=== PATIENT | female | born 1945 | race Caucasian/White ===

== ENCOUNTER 2023-01-27 12:17 | Emergency (ER) | payer OTHER, SELFPAY ==
[2023-01-27 12:29] VITALS: BP 160/97; PULSE 77; RESP 18; TEMP 37.1; O2SAT 97; BMI 29.2
[2023-01-27 13:40] VITALS: BP 145/99; PULSE 91; RESP 18; O2SAT 96
--- NOTE | 2023-01-27 14:32 | ED.WOUNDLAC ---
HPI - Wound/Laceration <Lyn Oscar PA-C - Last Filed: 01/27/23 14:39> General Chief Complaint: Wound/Laceration Stated Complaint: Open sore perenium Time Seen by Provider: 01/27/23 12:53 Source: patient Mode of arrival: Ambulatory History of Present Illness HPI narrative: Patient is a 77 year-old female who presents with a perineal wound. She reports about 5 days ago she noticed a small pimple on the right buttock, posterior to the vaginal introitus. She has amoxicillin that she has taken in the past for dental procedures and she started taking this but does not know the dose. The pimple grew in size and over the last 2 days has been draining a light bloody drainage. She denies fever or chills, otherwise feels well, but the area is very tender. She has been rinsing with a hand-held shower head. She denies any urinary symptoms or vaginal discharge or bleeding. She does not have a primary care provider. Related Data Previous Rx's Medication Instructions Recorded amoxicillin 875 mg-potassium 1 tab PO BID #14 tabs 01/27/23 clavulanate 125 mg tablet Allergies Allergy/AdvReac Type Severity Reaction Status Date / Time No Known Drug Allergies Allergy Verified 01/27/23 12:28 Review of Systems <Lyn Oscar PA-C - Last Filed: 01/27/23 14:39> Review of Systems ROS Unobtainable: All systems reviewed & are unremarkable except as noted in HPI and below Patient History <Lyn Oscar PA-C - Last Filed: 01/27/23 14:39> Social History Smoking Status: Never smoker Smoking Status: Never smoker alcohol intake frequency: 0-2 drinks per day Substance Use Type: does not use Exam <Lyn Oscar PA-C - Last Filed: 01/27/23 14:39> Narrative Exam Narrative: GENERAL: 77 year old patient appears stated age. Well-developed patient, in no distress. NEURO: AOx3. HEAD: Atraumatic. Normocephalic. EYES: Pupils equal round and reactive. Extraocular motions intact. No scleral icterus. No injection or drainage. ENT: Nose without bleeding or purulent drainage. Airway patent. RESPIRATORY: No distress. EXTREMITIES: No edema or joint tenderness. : Normal external adult female genitalia. There is a cellulitic area approximately 3 cm in diameter on the right buttock, posterior to the vaginal introitus. There is a central 5 mm opening that is plugged by white discharge. Using a Q-tip, this discharge was removed. The wound was gently probed with the sterile Q-tip and no tracts were found, deepest aspect was 5 mm. No fluctuance appreciated. SKIN: No rash or erythema of visible areas Initial Vital Signs Initial Vital Signs: Vital Signs Temperature 98.7 F 01/27/23 12:29 Pulse Rate 77 01/27/23 12:29 Respiratory Rate 18 01/27/23 12:29 Blood Pressure 160/97 H 01/27/23 12:29 Pulse Oximetry 97 01/27/23 12:29 Oxygen Delivery Method Room Air 01/27/23 12:29 <Diane Patel MD - Last Filed: 01/27/23 14:58> Initial Vital Signs Initial Vital Signs: Vital Signs Temperature 98.7 F 01/27/23 12:29 Pulse Rate 77 01/27/23 12:29 Respiratory Rate 18 01/27/23 12:29 Blood Pressure 160/97 H 01/27/23 12:29 Pulse Oximetry 97 01/27/23 12:29 Oxygen Delivery Method Room Air 01/27/23 12:29 Course <Lyn Oscar PA-C - Last Filed: 01/27/23 14:39> Vital Signs Vital signs: Vital Signs - 8 hr 01/27/23 12:29 01/27/23 13:40 Temperature 98.7 F Pulse Rate 77 91 H Respiratory Rate 18 18 Blood Pressure 160/97 H 145/99 H Pulse Oximetry 97 96 Oxygen Delivery Method Room Air Room Air <Diane Patel MD - Last Filed: 01/27/23 14:58> Vital Signs Vital signs: Vital Signs - 8 hr 01/27/23 12:29 01/27/23 13:40 Temperature 98.7 F Pulse Rate 77 91 H Respiratory Rate 18 18 Blood Pressure 160/97 H 145/99 H Pulse Oximetry 97 96 Oxygen Delivery Method Room Air Room Air MDM - Wound/Laceration <Lyn Oscar PA-C - Last Filed: 11/30/23 14:39> MDM Narrative Medical decision making narrative: Multiple etiologies for patient's symptoms considered including, but not limited to: Bartholin cyst abscess, cellulitis, perianal abscess, anorectal abscess/fistula. Based on my exam, this is not a Bartholin cyst abscess nor does it involve the rectum. There is an area of cellulitis with an open draining abscess, no fluctuance noted. No need for incision and drainage today. I will prescribe a 1 week course of Augmentin and advised patient to do 15 minute since baths at least twice daily and monitor for improvement. If not improving after 3 days of antibiotics or if worsening, she should go to the ER for reassessment. If she develops a fever, she should come back to the ER. Encouraged patient to call and establish care with one of the new primary care providers available at the hospital. Patient's symptoms improved over duration of stay with above-stated therapies. Findings and discharge diagnosis discussed with patient/family followed by verbalization of understanding Return precautions discussed with patient/family whom verbalize understanding of diagnosis and plan Discharge Plan Departure Patient Disposition: Home Clinical Impression: Abscess, perianal Instructions: DI for Wound Infection Activity Restrictions/Additional Instructions: *You have been diagnosed with Perianal cellulitis with spontaneously draining abscess. Please take the prescribed antibiotics twice a day for 7 days and soak the affected area in a warm bath for 15 minutes at least twice daily. If you do not notice improvement after 3 days of antibiotics or if you develop fever, please return to the emergency department. *What to do: *Please continue to take your regular medications as directed. [ x] New medication prescriptions sent to your pharmacy: [facility] [ ] New medication written as a paper prescription [ ] No new medications given *Please follow up with your primary care provider in 2-3 days, call for an appointment. Let them know you were seen in the Emergency Department and that we ask that you be seen in follow up. We will electronically transmit a record of today's note if your PCP is in our system *If you do not have a primary care provider please contact the [facility] Resource line at [phone]. They will ask some questions about your medical history and help get you set up with a doctor in the community. *Return to Emergency Department if you should have any new, worsening or concerning symptoms, such as [fever greater than 101 F, shaking chills, worsening pain, persistent vomiting or other concerning symptoms]. Prescriptions: New amoxicillin-pot clavulanate 875-125 mg tablet 1 tab PO BID Qty: 14 0RF Stand Alone Forms: Patient Portal/API ED Sign-out <Diane Patel MD - Last Filed: 01/27/23 14:58> Cosign ED Attending Cosignature Attestation: I did not see this patient. I was available all times for consultation.
== END 2023-01-27 13:38 | disposition home or self-care (01) ==
PROVIDERS: Emergency Provider Physician Assistant
DX: K61.0 Anal abscess (principal)
CPT/HCPCS: 99281